=== PATIENT | male | born 1985 | race Caucasian/White ===

== ENCOUNTER 2022-05-07 15:28 | Emergency (ER) | payer SELFPAY ==
[2022-05-07 15:49] VITALS: BP 123/74; PULSE 88; RESP 18; TEMP 36.6; O2SAT 99
--- NOTE | 2022-05-07 16:10 | ED.MALEGU ---
HPI - Male Genitourinary General Chief complaint: Urogenital-Male Stated complaint: uti complaint Time Seen by Provider: 05/07/22 16:10 Source: patient Mode of arrival: ambulatory Limitations: no limitations History of Present Illness HPI Narrative: 36-year-old male presents with complaint of does not feel normal when peeing . States not exactly painful but does not feel good . Has felt this way for approximately 3 weeks. States 2 weeks ago he began feeling not well . Fatigue and achy. Thinks that he has a kidney infection. Denies flank pain. No abdominal pain. Denies nausea vomiting diarrhea. Eating and drinking normally. Not concern for STIs. States he has been with his partner for 1 year. denies testicular pain, swelling. Denies blood in urine. All systems reviewed and negative except as noted above. Related Data Allergies Allergy/AdvReac Type Severity Reaction Status Date / Time Penicillins AdvReac Nausea and Verified 05/07/22 15:59 Vomiting Review of Systems Review of Systems: CONSTITUTIONAL: Denies fever, chills, or sweats. Reports fatigue EYES: Denies visual changes, redness, or discharge. ENT: Denies rhinorrhea, congestion, sore throat, or otalgia. CARDIOVASCULAR: Denies chest pain, palpitations, or edema. RESPIRATORY: Denies cough or dyspnea. GASTROINTESTINAL: Denies abdominal pain, nausea, vomiting, or diarrhea. GENITOURINARY: report dysuria. Denies hematuria. SKIN: Denies rash or itching. MUSCULOSKELETAL: Denies back pain, joint pain. Reports myalgia. NEUROLOGIC: Denies headache, numbness, or weakness. PSYCHIATRIC: Denies anxiety or depression. All other systems reviewed are negative, except as documented in HPI. PMFSH Comments At time of signature, agree with nursing past medical, surgical, social and family history. There is no relevant family history pertinent to the presenting complaint. Exam Narrative: GENERAL: This is a well-nourished, well-developed patient, in no apparent distress. HEAD: normocephalic, atraumatic. EYES: PERRL. Sclera clear/white. Vision is grossly intact. EARS: External ears normal NOSE: External nose normal NECK: Neck supple, non-tender without lymphadenopathy, masses or thyromegaly. CARDIOVASCULAR: Regular rate and rhythm without murmurs, gallops, or rubs. RESPIRATORY: Clear to auscultation. Breath sounds equal bilaterally. No wheezes, rales, or rhonchi. GASTROINTESTINAL: Abdomen soft, non-tender, nondistended. Bowel sounds are active. No hepato-splenomegaly, or palpable masses. No guarding. SKIN: warm, Dry, intact with no suspicious lesions or rash, good texture and turgor. NEURO: awake, alert, and oriented to person, place and time. There were no obvious focal neurologic abnormalities. EXTREMITIES: No joint tenderness, effusion, or edema noted. Course Course Level of Care: Express Care Visit Vital Signs Vital signs: Vital Signs Temperature 36.6 C 05/07/22 15:49 Pulse Rate 88 05/07/22 15:49 Respiratory Rate 18 05/07/22 15:49 Blood Pressure 123/74 05/07/22 15:49 Pulse Oximetry 99 05/07/22 15:49 Oxygen Delivery Room Air 05/07/22 15:49 Temperature 36.6 C 05/07/22 15:49 Pulse Rate 88 05/07/22 15:49 Respiratory Rate 18 05/07/22 15:49 Blood Pressure 123/74 05/07/22 15:49 Pulse Oximetry 99 05/07/22 15:49 Oxygen Delivery Room Air 05/07/22 15:49 reviewed MDM - Male Genitourinary MDM Narrative Medical decision making narrative: UA normal. Discussed results with patient. STI testing is pending. Will prescribe antibiotic to treat patient's symptoms and has continued concern for UTI. Recommend follow-up with PCP. Patient is aware of diagnosis, understands and agrees to treatment plan. Anticipatory guidance given. Patient agrees to follow-up as directed and is aware of reasons to seek care at the emergency department. Portions of this record may have been created with voice recognition software
== END 2022-05-07 16:22 | disposition home or self-care (01) ==
PROVIDERS: Emergency Provider Nurse Practitioner Family
DX: R30.0 Dysuria (principal)
CPT/HCPCS: 81003; 87491; 87591; 87661; 99203; G0463

== ENCOUNTER 2022-06-11 16:57 | Emergency (ER) | payer SELFPAY ==
[2022-06-11 17:13] VITALS: BP 135/82; PULSE 105; RESP 18; TEMP 37.3; O2SAT 99
--- NOTE | 2022-06-11 17:57 | ED.URI ---
HPI - URI/Sore Throat General Chief Complaint: Upper Respiratory Infection Stated Complaint: Body Aches,Chills,Cough,Sore Throat Time Seen by Provider: 06/11/22 17:52 Source: patient Mode of arrival: ambulatory Limitations: no limitations History of Present Illness HPI Narrative: Patient presents today with a 3 day history of sore throat, chills, bilateral ear pain, body aches, subjective fever. He currently rates his sore throat 8/10 and has been taking Excedrin without relief. Related Data Home Medications Medication Instructions Recorded Confirmed bupropion HCl 300 mg 24 hr tablet, 300 mg PO DAILY 06/11/22 06/11/22 extended release Allergies Allergy/AdvReac Type Severity Reaction Status Date / Time Penicillins AdvReac Mild Nausea and Verified 06/11/22 17:10 Vomiting Review of Systems Review of Systems: CONSTITUTIONAL: Denies sweats.+ Body aches, chills, subjective fever EYES: Denies visual changes, redness, or discharge. ENT: Denies rhinorrhea, congestion. + sore throat, ear pain CARDIOVASCULAR: Denies chest pain, palpitations, or edema. RESPIRATORY: Denies cough or dyspnea. GASTROINTESTINAL: Denies abdominal pain, nausea, vomiting, or diarrhea. GENITOURINARY: Denies dysuria or hematuria. SKIN: Denies rash, itching, or wounds. MUSCULOSKELETAL: Denies back pain, joint pain, or myalgia. NEUROLOGIC: Denies headache, numbness, tingling, or weakness. PSYCH: Denies depression or anxiety. PMFSH Comments At time of signature, I have reviewed and agree with nursing past medical, surgical, social and family history unless otherwise noted. Please see nursing chart for further information. There is no relevant family history pertinent to the presenting complaint Exam Narrative: GENERAL: mildly ill-appearing, well-nourished, and in no acute distress. HEAD: Normocephalic, atraumatic. EYES: EOMI. No redness or drainage. Conjunctivae normal. ENT: Mucous membranes pink and moist. Nares clear. No rhinorrhea. TMs normal bilaterally. Throat erythematous without edema or exudate. Uvula midline. NECK: Normal AROM. Supple. Bilateral tonsillar lymphadenopathy. CHEST: No respiratory distress. Clear to auscultation. HEART: Regular rate and rhythm. No murmur appreciated. Normal peripheral pulses. EXTREMITIES: Normal range of motion. No edema. SKIN: Warm, dry, no rash. Capillary refill normal. Normal skin turgor. NEURO: No focal deficits. Alert and oriented x3. Gait steady. PSYCH: Normal affect. No signs of depression or anxiety. Course Course Level of Care: Express Care Visit Vital Signs Vital signs: Vital Signs Temperature 99.1 F 06/11/22 17:13 Pulse Rate 105 H 06/11/22 17:13 Respiratory Rate 18 06/11/22 17:13 Blood Pressure 135/82 06/11/22 17:13 Pulse Oximetry 99 06/11/22 17:13 Oxygen Delivery Room Air 06/11/22 17:13 Temperature 99.1 F 06/11/22 17:13 Pulse Rate 105 H 06/11/22 17:13 Respiratory Rate 18 06/11/22 17:13 Blood Pressure 135/82 06/11/22 17:13 Pulse Oximetry 99 06/11/22 17:13 Oxygen Delivery Room Air 06/11/22 17:13 Reviewed. Pt has been instructed to follow up with his PCP regarding his elevated blood pressure today. MDM - URI/Sore Throat Differential Diagnosis Differential diagnosis: Likely upper respiratory infection, viral infection, pharyngitis and other ( strep throat) Lab Data Attestation: I reviewed the patient's lab results. Labs: Strep Screen Positive Group A Strep *(Reference Range: Negative)* Critical Care Time Critical Care Time Critical Care Time: No Discharge Plan Discharge Clinical Impression: Strep throat Patient Disposition: Home, Self-Care Condition: Stable Instructions: Antibiotic Form, Strep Throat (DC) Additional Instructions: You have tested positive for strep throat. Please take the azithromycin as prescribed until gone. Taking anti
== END 2022-06-11 18:03 | disposition home or self-care (01) ==
PROVIDERS: Emergency Provider Nurse Practitioner
DX: J02.0 Streptococcal pharyngitis (principal)
CPT/HCPCS: 87880; 99213; G0463

== ENCOUNTER 2022-09-12 12:29 | Emergency (ER) | payer BC, SELFPAY ==
--- NOTE | ~2022-09-12 | CT_ITS ---
EXAMINATION: CT abdomen pelvis w con DATE: 09/12/2022 13:48 INDICATION: Left lower quadrant abdominal pain. TECHNIQUE: Computed tomography (CT) of the abdomen and pelvis was performed with 100 mL Omnipaque 350 intravenous contrast. Automated exposure control and iterative reconstruction technique were employe d. The dose-length product was 418.26 mGy-cm. COMPARISON: None. FINDINGS: The visualized portions of the lung bases demonstrate minimal atelectasis. No pleural effus ion. The heart size is normal. No pericardial effusion. The liver and spleen are normal. The gallblad kenn is contracted. The pancreas, adrenal glands, and right kidney are normal. There is a 5 mm cyst in left kidney. There are changes of appendectomy. There are no pathologically enlarged lymph nodes. Th ere is no free intraperitoneal fluid. There is mild thoracic and lumbar spondylosis. IMPRESSION: 1. No etiology for the patient's symptoms. Reviewed, dictated and finalized at location A. [employer]
[2022-09-12 12:43] VITALS: BP 114/76; PULSE 84; RESP 18; TEMP 36.7; O2SAT 98
[2022-09-12 12:50] VITALS: BP 114/76; PULSE 78; RESP 18; O2SAT 99
[2022-09-12 13:00] LABS: Basophils Absolute Auto 0.1 K/mm3 (0.0-0.1); Basophils Percent Auto 0.7 % (0.2-1.2); Eosinophils Absolute Auto 0.2 K/mm3 (0-0.3); Eosinophils Percent Auto 2.7 % (0-4.4); Hematocrit 42.3 % (42.0-52.0); Hemoglobin 14.3 g/dL (14.0-18.0); Immature Granulocyte Absolute 0.02 K/mm3 (0.00-0.031); Immature Granulocyte Percent A 0.3 % (0-0.5); Lymphocytes Absolute Auto 1.45 K/mm3 (0.9-3.2); Lymphocytes Percent Auto 20.5 % (18.3-44.2); Mean Corpuscular HGB Conc 33.8 g/dl (32-36); Mean Corpuscular Volume 88.7 fl (80-100); Mean Platelet Volume 9.1 fl (7.4-10.4); Monocytes Absolute Auto 0.5 K/mm3 (0.1-0.6); Monocytes Percent Auto 6.4 % (2.6-8.5); Neutrophils Absolute Auto 4.9 K/mm3 (1.3-6.7); Neutrophils Percent Auto 69.4 % (45.5-73.1); Platelet Count Result 242 k/mm3 (150-375); Red Blood Count 4.77 M/mm3 (4.6-6.20); Red Cell Distribution Width 12.6 % (11.5-14.5); White Blood Count 7.1 K/mm3 (4.5-10.0)
[2022-09-12 13:15] LABS: Alanine Aminotransferase 21 U/L (6-50); Albumin Level 4.4 g/dL (3.5-5.1); Alkaline Phosphatase 67 U/L (38-126); Anion Gap 5 mmol/L (8-16); Aspartate Amino Transferase 25 U/L (17-59); Bilirubin,Total 0.5 mg/dL (0.2-1.3); Blood Urea Nitrogen 11 mg/dL (9-20); Calcium 8.8 mg/dL (8.4-10.2); Carbon Dioxide 31 mmol/L (22-30); Chloride 105 mmol/L (98-107); Estimated CRCL calculation 138 ml/min; Estimated Glomerular Filt Rate > 60; Glucose 101 mg/dL (65-110); Lipase 36 U/L (23-300); Potassium 3.8 mmol/L (3.4-5.0); Sodium 141 mmol/L (137-145)
--- NOTE | 2022-09-12 14:09 | ED.ABDPAIN ---
HPI - Abdominal Pain General Chief Complaint: Abdominal Pain Stated Complaint: abd pain/diarrhea Time Seen by Provider: 09/12/22 12:36 History of Present Illness HPI narrative: Patient is a 37-year-old male who presents ER with concerns for UC flare. History of ulcerative colitis has not been treated over 10 years. Started having loose mucus-like stools with blood in them this week. Has not been able to get in with GI. No fevers or chills or sweats. Was told to come to the ER for evaluation and referral if needed. Related Data Home Medications Medication Instructions Recorded Confirmed bupropion HCl 300 mg 24 hr tablet, 300 mg PO DAILY 06/11/22 06/11/22 extended release Allergies Allergy/AdvReac Type Severity Reaction Status Date / Time Penicillins AdvReac Mild Nausea and Verified 09/12/22 12:47 Vomiting Review of Systems Review of Systems: All systems reviewed & are unremarkable except as noted in HPI and below Constitutional: Constitutional: Denies chills and Denies fever(s) Cardiovascular: Cardiovascular: Denies chest pain and Denies rapid heart rate Respiratory: Respiratory: Denies cough and Denies dyspnea Gastrointestinal: Gastrointestinal: Reports abdominal pain, Reports diarrhea, Denies nausea and Denies vomiting PMFSH Past Medical History Medical History (Updated 09/12/22 @ 14:14 by Garett Rahman MD) Ulcerative colitis Surgical History Surgical History (Updated 09/12/22 @ 14:14 by Garett Rahman MD) History of colonoscopy Exam Narrative: GENERAL: Well-appearing, well-nourished, and in no acute distress. HEAD: Normocephalic, atraumatic. CHEST: Clear to auscultation. No respiratory distress. HEART: Regular rate and rhythm. Normal peripheral pulses. ABDOMEN: Soft, mild tenderness left lower quadrant, nondistended. EXTREMITIES: Normal range of motion. No edema. SKIN: Warm, dry, no rash. NEURO: Alert and oriented x3. PSYCH: Normal mood and affect. Course Course Emergency Course: Patient resting comfortably. Informed of results. Discussed case with Dr. Braga. Recommends steroid taper and follow-up in GI clinic. Discussed treatment plan with patient and he is agreeable. Vital Signs Vital signs: Vital Signs Temperature 98.1 F 09/12/22 12:43 Pulse Rate 84 09/12/22 12:43 Respiratory Rate 18 09/12/22 12:43 Blood Pressure 114/76 09/12/22 12:43 Pulse Oximetry 98 09/12/22 12:43 Oxygen Delivery Room Air 09/12/22 12:43 Temperature 98.1 F 09/12/22 12:43 Pulse Rate 78 09/12/22 12:50 Respiratory Rate 18 09/12/22 12:50 Blood Pressure 114/76 09/12/22 12:50 Pulse Oximetry 99 09/12/22 12:50 Oxygen Delivery Room Air 09/12/22 12:43 MDM - Abdominal Pain Lab Data 09/12/22 12:55 09/12/22 12:55 Labs: Lab Results 09/12/22 09/12/22 Range/Units 12:55 12:55 WBC 7.1 (4.5-10.0) K/mm3 RBC 4.77 (4.6-6.20) M/mm3 Hgb 14.3 (14.0-18.0) g/dL Hct 42.3 (42.0-52.0) % MCV 88.7 (80-100) fl MCH 30.0 (26-34) pg MCHC 33.8 (32-36) g/dl RDW 12.6 (11.5-14.5) % Plt Count 242 (150-375) k/mm3 MPV 9.1 (7.4-10.4) fl Immature Gran % (Auto) 0.3 (0-0.5) % Neut % (Auto) 69.4 (45.5-73.1) % Lymph % (Auto) 20.5 (18.3-44.2) % Holmes % (Auto) 6.4 (2.6-8.5) % Eos % (Auto) 2.7 (0-4.4) % Baso % (Auto) 0.7 (0.2-1.2) % Lymph # (Auto) 1.45 (0.9-3.2) K/mm3 Holmes # (Auto) 0.5 (0.1-0.6) K/mm3 Eos # (Auto) 0.2 (0-0.3) K/mm3 Baso # (Auto) 0.1 (0.0-0.1) K/mm3 Abs Immat Gran (auto) 0.02 (0.00-0.031) K/mm3 Absolute Neuts (auto) 4.9 (1.3-6.7) K/mm3 Absolute Nucleated RBC 0.0 (0.0-0.012) K/mm3 Nucleated RBC % 0.0 (0.0-0.2) % Sodium 141 (137-145) mmol/L Potassium 3.8 (3.4-5.0) mmol/L Chloride 105 (98-107) mmol/L Carbon Dioxide 31 H (22-30) mmol/L Anion Gap 5 L (8-16) mmol/L BUN 11 (9-20) mg/dL Creatinine 0.70 (0.7-1.3) m
[2022-09-12 14:26] VITALS: BP 102/68; PULSE 77; RESP 18; O2SAT 98
== END 2022-09-12 14:27 | disposition home or self-care (01) ==
PROVIDERS: Emergency Provider Emergency Medicine; PCP Family Medicine
DX: K51.90 Ulcerative colitis, unspecified, without complications (principal)
CPT/HCPCS: 36415; 74177; 80053; 83690; 85025; 99284; Q9967

== ENCOUNTER 2022-09-27 14:31 | Outpatient (CLI) | payer BC, SELFPAY ==
[2022-09-27 15:31] LABS: CRP < 0.5 mg/dL (<1.0)
[2022-09-27 16:03] LABS: Erythrocyte Sedimentation Rate 1 mm/hr (0-20)
[2022-10-01 00:02] LABS: Vitamin D 1,25 (OH)2 Total 46 pg/mL (18-72); Vitamin D2 1,25 (OH)2 <8 pg/mL; Vitamin D3 1,25 (OH)2 46 pg/mL
== END 2022-09-27 14:32 | disposition home or self-care (01) ==
PROVIDERS: PCP Family Medicine; Visit Provider Nurse Practitioner
DX: K51.90 Ulcerative colitis, unspecified, without complications (principal); K92.1 Melena; R10.9 Unspecified abdominal pain
CPT/HCPCS: 36415; 82652; 85652; 86140

== ENCOUNTER 2022-11-08 11:04 | Outpatient (CLI) | payer BC, SELFPAY ==
[2022-11-13 20:32] LABS: Calprotectin, Stool 96 mcg/g
== END 2022-11-08 11:05 | disposition home or self-care (01) ==
LOC: ANHLAB 11:05
PROVIDERS: PCP Family Medicine; Visit Provider Nurse Practitioner
DX: K51.90 Ulcerative colitis, unspecified, without complications (principal); K92.1 Melena; R10.9 Unspecified abdominal pain
CPT/HCPCS: 83993

== ENCOUNTER 2022-12-03 02:33 | Day surgery (SDC) | payer OTHER, SELFPAY ==
[2022-11-17 16:08] VITALS: BMI 25.1
[2022-12-03 11:20] VITALS: BP 109/75; PULSE 77; RESP 16; TEMP 36.6; O2SAT 99
[2022-12-03] MEDS: LACTATED RINGERS 1,000 ML 150 ML IV CONT (11:27)
--- NOTE | 2022-12-03 11:54 | PM.HPGS ---
History of Present Illness History of Present Illness Consent: Risks, benefits, and alternatives have been discussed and questions answered. Patient agrees to proceed with procedure. Chief complaint: GERD, Ulcerative Colitis Narrative: Abdiel Lane is a 37 year old male presents for both colonoscopy and EGD. Patient has a history of heartburn for many years. He states this is controlled if he takes omeprazole 20mg p.o. daily. He does take it intermittently however. When he has flare-ups several times a week he also will supplement with [id number] antacids. Patient denies any dysphagia. He has no weight loss. No bleeding. Presents today for EGD because of chronic GE reflux. Additionally patient was diagnosed with ulcerative colitis at age 21. Recently has been on no specific medications. He has had rectal bleeding and diarrhea. For which she was seen in the emergency room. Seen in the GI office 2 months ago was placed on Lialda. Initially treated with steroids. Prednisone has been tapered off. After 2-3 weeks a Lialda he no longer has blood in his stools. His bowel habits have essentially returned to normal. He does complain of chronic left lower quadrant pain has been present for many years. Patient has had prior colonoscopy perhaps 6 or 7 years ago. Family history is noncontributory. Review of Systems Review of Systems: Review of systems noncontributory. [facility] Past Medical History Medical History (Updated 09/27/22 @ 14:22 by Monika Vaz APRN) GERD (gastroesophageal reflux disease) Ulcerative colitis Surgical History Surgical History History of colonoscopy Social History Social History Smoking packs per day: 1 Smoking cigarettes per day: 20.0 Years smoked: 16 Smoking pack-years: 16.00 Smoking status: Current every day smoker Tobacco type: cigarettes Alcohol intake: current Drinks per week: 6 Alcohol use details: BEERS Substance use: current Substance use type: marijuana Other substance usage details: SMOKE ONCE A WEEK Living arrangements: with family Spiritual care concerns: No Meds Home Medications and Allergies Home Medications Medication Instructions Recorded Confirmed Type bupropion HCl 300 mg 24 hr tablet, 300 mg PO DAILY 06/11/22 12/03/22 History extended release mesalamine 1.2 gram tablet,delayed 4.8 g PO DAILY #120 tabs 09/27/22 12/03/22 Rx release (Lialda) omeprazole 40 mg capsule,delayed 40 mg PO DAILY #30 caps 09/27/22 12/03/22 Rx release paroxetine HCl 10 mg tablet 20 mg PO DAILY 12/03/22 12/03/22 History Allergies Allergy/AdvReac Type Severity Reaction Status Date / Time Penicillins Allergy Intermediate Hives Verified 12/03/22 11:19 Vital Signs Vital Signs - 24 hr 12/03/22 11:20 Temperature 97.8 F Pulse Rate 77 Respiratory Rate 16 Blood Pressure 109/75 Pulse Oximetry 99 Oxygen Delivery Room Air Exam Narrative: Physical exam reveals patient to be alert. Vital signs stable. HEENT exam is unremarkable. Patient is anicteric. Lungs are clear to auscultation and percussion. Heart is without murmur or extra sounds. Abdomen bowel sounds are present soft , He does have some nonspecific tenderness in the left lower quadrant area. No masses are palpable. with no organomegaly. Digital external rectal exam normal. Assessment and Plan Assessment and plan (1) GERD (gastroesophageal reflux disease): Code(s): K21.9 - Gastro-esophageal reflux disease without esophagitis Status: Acute Assessment and Plan: Patient complains of GERD. He has heartburn is is main symptom. This occurs is prep predominantly on an empty stomach. It occurs several times a week. He only takes omeprazole p.r.n.. Likely would benefit from taking this daily with more strict anti-reflux measures
--- NOTE | 2022-12-03 13:02 | WPDANESEPPF ---
Anes - Initial Pre Proc Eval Procedure: Operation Date: 12/03/22 12:30 Proposed Procedures p Esophagogastroduodenoscopy & Colonoscopy - Lui Givens MD Date/Time: 12/03/22 13:02 Surgeon: Lui Givens MD Pre Op Diagnosis: GERD, Ulcerative Colitis Patient Data Age: 37 Gender: M Height: 1.83 m Weight: 81.8 kg Last Vital Signs Temp 97.8 F 12/03/22 11:20 Pulse 77 12/03/22 11:20 Resp 16 12/03/22 11:20 BP 109/75 12/03/22 11:20 Pulse Ox 99 12/03/22 11:20 O2 Del Method Room Air 12/03/22 11:20 Allergies Allergy/AdvReac Type Severity Reaction Status Date / Time Penicillins Allergy Intermediate Hives Verified 12/03/22 11:19 Home Medications Medication Instructions Recorded Confirmed Type bupropion HCl 300 mg 24 hr tablet, 300 mg PO DAILY 06/11/22 12/03/22 History extended release mesalamine 1.2 gram tablet,delayed 4.8 g PO DAILY #120 tabs 09/27/22 12/03/22 Rx release (Lialda) omeprazole 40 mg capsule,delayed 40 mg PO DAILY #30 caps 09/27/22 12/03/22 Rx release paroxetine HCl 10 mg tablet 20 mg PO DAILY 12/03/22 12/03/22 History Patient hx anesthesia problems: none Family hx anesthesia problems: none Results Review: All pre-operative results and documents have been reviewed as part of the pre-operative evaluation. [facility] Past Medical History Medical History (Updated 09/27/22 @ 14:22 by Monika Vaz APRN) GERD (gastroesophageal reflux disease) Ulcerative colitis Surgical History Surgical History History of colonoscopy Social History Social History Smoking packs per day: 1 Smoking cigarettes per day: 20.0 Years smoked: 16 Smoking pack-years: 16.00 Smoking status: Current every day smoker Tobacco type: cigarettes Alcohol intake: current Drinks per week: 6 Alcohol use details: BEERS Substance use: current Substance use type: marijuana Other substance usage details: SMOKE ONCE A WEEK Living arrangements: with family Spiritual care concerns: No Anes - Eval Final PreProcedure Day of Procedure 12/03/22 13:02 Patient weight: normal Heart: regular rate and rhythm Lungs: clear to auscultation Airway: Mallampati scale class II Neurological: alert and oriented Last oral intake: >/= 8 hours ASA classification: II Emergent: no Anesthetic plan: proceed Anesthesia type and monitoring: general GIVS and standard monitoring Results Review: All pre-operative results and documents have been reviewed as part of the pre-operative evaluation. Informed Consent: The patient's anesthetic plan and its attendant risks and benefits were discussed with the patient/family/POA. Questions were solicited and answers provided to the satisfaction of the patient/family/POA.
--- NOTE | 2022-12-03 13:47 | SUR.OPER ---
EGD START 1326, END 1328 COLONOSCOPY START 1334, END 1344
[2022-12-03 13:55] VITALS: BP 98/64; PULSE 73; RESP 16; O2SAT 99
[2022-12-03 14:05] VITALS: BP 104/70; PULSE 68; RESP 17; O2SAT 99
[2022-12-03 14:22] VITALS: BP 120/70; PULSE 75; RESP 18; O2SAT 99
== END 2022-12-03 14:34 | disposition home or self-care (01) ==
PROVIDERS: PCP Family Medicine; Visit Provider Internal Medicine Gastroenterology
PROC: 0DJ08ZZ Inspection of Upper Intestinal Tract, Via Natural or Artificial Opening Endoscopic (ICD-10-PCS; CPT 43235; principal; 2022-12-03 12:30)
DX: K21.9 Gastro-esophageal reflux disease without esophagitis (principal); K51.50 Left sided colitis without complications; K31.A19 Gastric intestinal metaplasia without dysplasia, unspecified site; K64.8 Other hemorrhoids; F17.210 Nicotine dependence, cigarettes, uncomplicated
CPT/HCPCS: 43239; 45380; 87081; 88305; J2001; J2704; J7120

== ENCOUNTER 2023-07-18 00:08 | Emergency (ER) | payer OTHER, SELFPAY ==
--- NOTE | ~2023-07-18 | XR_ITS ---
Right Shoulder Technique: AP and scapular Y views were obtained. Clinical History: Pain Findings: No fracture or dislocation is seen. Osseous alignment is anatomic. The glenohumeral and acr omioclavicular joint spaces are preserved. Soft tissues are unremarkable. Impression: Unremarkable right shoulder radiographs. Reviewed, dictated and finalized at [facility]. [employer] Impression: Unremarkable right shoulder radiographs.
[2023-07-18 00:09] VITALS: BP 115/93; PULSE 85; RESP 16; TEMP 36.3; O2SAT 99
[2023-07-18] MEDS: diazePAM INJ (*CRX) 10 MG/2 ML SYRINGE 2 MG IM (03:19)
[2023-07-18] MEDS: KETOROLAC (*BKC) 60 MG/2 ML VIAL IM (03:19)
--- NOTE | 2023-07-18 03:50 | ED.EXTPRO ---
HPI - Extremity Problem General Chief complaint: Extremity Problem,Nontraumatic Stated complaint: right shoulder pain Time Seen by Provider: 07/18/23 03:00 Source: patient Mode of arrival: ambulatory Limitations: no limitations History of Present Illness HPI Narrative: Patient is a 38-year-old male who presents ED with report of right shoulder pain. Patient reports pain woke him up out of his sleep this evening a few hours prior to arrival. He reports pain in his right shoulder/right-sided neck/upper back. States he has been having muscle spasms that feel like Tin horses in his arm/shoulder. Pain radiates down the arm. No numbness or tingling. Patient denies any injury. He has not taken anything for pain. No chest pain or difficulty breathing. Related Data Home Medications Medication Instructions Recorded Confirmed bupropion HCl 300 mg 24 hr tablet, 300 mg PO DAILY 06/11/22 12/16/22 extended release paroxetine HCl 10 mg tablet 20 mg PO DAILY 12/03/22 12/16/22 Allergies Allergy/AdvReac Type Severity Reaction Status Date / Time Penicillins Allergy Intermediate Hives Verified 07/18/23 01:48 Review of Systems Review of Systems: CONSTITUTIONAL: Denies fever, chills, or sweats. MUSCULOSKELETAL: See HPI. NEUROLOGIC: See HPI. All systems reviewed & are unremarkable except as noted in HPI and below PMFSH Past Medical History Medical History Chronic left-sided ulcerative colitis GERD (gastroesophageal reflux disease) Hemorrhoids Tobacco dependence Ulcerative colitis Surgical History Surgical History History of colonoscopy Social History Social History Smoking packs per day: 1 Smoking cigarettes per day: 20.0 Years smoked: 16 Smoking pack-years: 16.00 Smoking status: Current every day smoker Tobacco type: cigarettes Alcohol intake: current Drinks per week: 6 Alcohol use details: BEERS Substance use: current Substance use type: marijuana Other substance usage details: SMOKE ONCE A WEEK Living arrangements: with family Spiritual care concerns: No Exam Narrative: GENERAL: Uncomfortable appearing, well-nourished, non-toxic, in no acute distress. HEAD: Normocephalic, atraumatic. RESPIRATORY: Airway patent, respirations nonlabored. Clear to auscultation bilaterally, no rales, rhonchi, wheezing. CARDIOVASCULAR: Regular rate and rhythm without murmurs, rubs, or gallops. Radial pulses 2+ MUSCULOSKELETAL: Moves all extremities. Full range of motion of right shoulder. Tenderness to palpation over right anterior shoulder. No palpable deformities. Tenderness throughout lower right-sided paraspinal musculature extending into trapezius region and upper rhomboid distribution. Palpable muscle tension. Sensation intact. Equal leather colorer strength in upper extremities stacie. Appropriate capillary refill to R hand/fingers. SKIN: Warm, dry, normal color. NEURO: A&O X3. Speech clear. Cranial nerves II-XII grossly intact. Steady gait. No ataxic movements. PSYCHIATRIC: Appropriate mood and affect. Normal interaction. Course Vital Signs Vital signs: Vital Signs Temperature 97.3 F L 07/18/23 00:09 Pulse Rate 85 07/18/23 00:09 Respiratory Rate 16 07/18/23 00:09 Blood Pressure 115/93 H 07/18/23 00:09 Pulse Oximetry 99 07/18/23 00:09 Oxygen Delivery Room Air 07/18/23 00:09 Temperature 97.3 F L 07/18/23 00:09 Pulse Rate 85 07/18/23 00:09 Respiratory Rate 16 07/18/23 00:09 Blood Pressure 115/93 H 07/18/23 00:09 Pulse Oximetry 99 07/18/23 00:09 Oxygen Delivery Room Air 07/18/23 00:09 MDM - Extremity (Nontraumatic) MDM Narrative Medical decision making narrative: Patient presented to ED with right-sided neck/shoulder/upper back pain, spasms. Patient neurologically inta
[2023-07-18] MEDS: CYCLOBENZAPRINE HCL 5 MG TABLET PO (04:36)
[2023-07-18 04:38] VITALS: BP 120/84; PULSE 80; RESP 17; O2SAT 100
== END 2023-07-18 04:41 | disposition home or self-care (01) ==
PROVIDERS: Emergency Provider Physician Assistant; PCP Family Medicine
DX: S16.1XXA Strain of muscle, fascia and tendon at neck level, initial encounter (principal); K21.9 Gastro-esophageal reflux disease without esophagitis; K51.90 Ulcerative colitis, unspecified, without complications; F17.210 Nicotine dependence, cigarettes, uncomplicated; X58.XXXA Exposure to other specified factors, initial encounter
CPT/HCPCS: 73030; 96372; 99284; A9270; J1885; J3360

== ENCOUNTER 2023-07-19 15:27 | Emergency (ER) | payer OTHER, SELFPAY ==
[2023-07-19 15:40] VITALS: BP 129/84; PULSE 84; RESP 16; TEMP 36.3; O2SAT 100
--- NOTE | 2023-07-19 15:50 | ED.UPPEXIN ---
HPI - Extremity Injury (Upper) General Chief Complaint: Extremity Injury, Upper Stated Complaint: Right Arm Pain Source: patient Mode of arrival: ambulatory Limitations: no limitations History of Present Illness HPI narrative: 38 y/o male presented for c/o right arm pain and spams since last night. Pain is to the mid tricep and forearm, reports the thumb feels numb and cold. Denies injury, states he woke with the arm stiff and bent at elbow. Pt was seen in the ER on 07/18 at 0300, for reports of pain to right shoulder/right-sided neck/upper back. Given Toradol and Valium in the ER, prescribed Flexeril and lidocaine patches. He states he has minimal improvement in the arm pain with the meds. Pain is now minimal to the neck and back. No aggravating factors, reports full ROM to the RUE. Pt was scheduled with pcp today but was turned away because he is a new pt. Related Data Home Medications Medication Instructions Recorded Confirmed bupropion HCl 300 mg 24 hr tablet, 300 mg PO DAILY 06/11/22 07/19/23 extended release Allergies Allergy/AdvReac Type Severity Reaction Status Date / Time Penicillins Allergy Intermediate Hives Verified 07/19/23 15:38 Review of Systems Review of Systems: CONSTITUTIONAL: Denies body aches, fever, chills CARDIOVASCULAR: Denies chest pain, palpitations, or edema. RESPIRATORY: Denies cough or dyspnea. SKIN: Denies rash, itching, or wounds. MUSCULOSKELETAL: per HPI NEUROLOGIC: Denies headache All systems reviewed & are unremarkable except as noted in HPI and below PMFSH Past Medical History Medical History Chronic left-sided ulcerative colitis GERD (gastroesophageal reflux disease) Hemorrhoids Tobacco dependence Ulcerative colitis Surgical History Surgical History History of colonoscopy Social History Social History Smoking packs per day: 1 Smoking cigarettes per day: 20.0 Years smoked: 16 Smoking pack-years: 16.00 Smoking status: Current every day smoker Tobacco type: cigarettes Alcohol intake: current Drinks per week: 6 Alcohol use details: BEERS Substance use: current Substance use type: marijuana Other substance usage details: SMOKE ONCE A WEEK Living arrangements: with family Spiritual care concerns: No Comments At time of signature, I have reviewed and agree with nursing past medical, surgical, social and family history unless otherwise noted. Please see nursing chart for further information. There is no relevant family history pertinent to the presenting complaint Exam Narrative: GENERAL: Appears in mild pain, holding the right arm. no acute distress. HEAD: Normocephalic, atraumatic. NECK: Supple. full ROM. No VPT. CHEST: Speaks in full sentences. No respiratory distress. HEART: Regular rate and rhythm. Normal and equal peripheral pulses. EXTREMITIES: RUE has normal strength and sensation, normal range of motion at shoulder and elbow without pain. Pain reported to mid tricep and medial epicondyle, mild tenderness with palpation. No ecchymosis, No open wounds, or obvious deformity; alignment normal, pulse palpable and equal bilaterally, [employer] strength strong and equal bilaterally. skin warm, dry, pink. Capillary refill less than 3 seconds. No vertebral or paraspinal tenderness to cervical or thoracic area. SKIN: Warm, dry, no rash. NEURO: Alert and oriented x3. PSYCH: Normal mood and affect Course Course Emergency Course: Patient is aware of diagnosis, understands and agrees to treatment plan. Anticipatory guidance given. Patient agrees to follow-up as directed and is aware of reasons to seek care at the emergency department. Portions of this record may have been created with voice recognition software Level of Care: Express Care Visit Vital Signs Vital signs:
== END 2023-07-19 15:57 | disposition home or self-care (01) ==
PROVIDERS: Emergency Provider Nurse Practitioner Family
DX: M79.601 Pain in right arm (principal); F17.210 Nicotine dependence, cigarettes, uncomplicated; Z79.899 Other long term (current) drug therapy
CPT/HCPCS: 99213; G0463

== ENCOUNTER 2023-09-01 13:04 | Emergency (ER) | payer OTHER, SELFPAY ==
--- NOTE | 2023-09-01 13:10 | ED.URI ---
HPI - URI/Sore Throat General Chief Complaint: Upper Respiratory Infection Stated Complaint: sorethroat,abdominal pain Time Seen by Provider: 09/01/23 13:10 Source: patient Mode of arrival: ambulatory Limitations: no limitations History of Present Illness HPI Narrative: Patient is a 38-year-old male who presents with 4 days of fatigue, headaches, sore throat. Patient states he has taken Tylenol for headache. Denies any fever, chills, nausea, vomiting, diarrhea. Related Data Home Medications Medication Instructions Recorded Confirmed bupropion HCl 300 mg 24 hr tablet, 300 mg PO DAILY 06/11/22 07/19/23 extended release Allergies Allergy/AdvReac Type Severity Reaction Status Date / Time Penicillins Allergy Intermediate Hives Verified 09/01/23 13:22 Review of Systems Review of Systems: All systems reviewed & are unremarkable except as noted in HPI and below Constitutional: Constitutional: Denies body ache(s), Denies chills, Reports fatigue, Denies fever(s), Denies headache(s), Denies malaise and Denies weakness Eyes: Eyes: Denies blurry vision, Denies itchy eyes and Denies loss of vision ENT: Denies otalgia, Reports headache(s), Reports nasal congestion, Denies sinus pain and Reports sore throat Cardiovascular: Cardiovascular: Denies chest pain, Denies irregular heart rhythm and Denies dyspnea Respiratory: Respiratory: Denies cough and Denies dyspnea Gastrointestinal: Gastrointestinal: Denies abdominal pain, Denies diarrhea, Denies nausea and Denies vomiting Musculoskeletal: Musculoskeletal: Denies back pain, Denies myalgias and Denies arthralgias Integumentary/Breasts: Skin/Breast: Denies pruritus and Denies rash Neurologic: Denies headache(s), Denies loss of vision and Denies weakness Psychiatric: Psychiatric: Reports no additional psychiatric complaints Endocrine: Endocrine: Denies fatigue Allergic/Immunologic: Allergic/Immunologic: Denies itchy eyes PMFSH Past Medical History Medical History Chronic left-sided ulcerative colitis GERD (gastroesophageal reflux disease) Hemorrhoids Tobacco dependence Ulcerative colitis Surgical History Surgical History History of colonoscopy Social History Social History Smoking packs per day: 1 Smoking cigarettes per day: 20.0 Years smoked: 16 Smoking pack-years: 16.00 Smoking status: Current every day smoker Tobacco type: cigarettes Alcohol intake: current Drinks per week: 6 Alcohol use details: BEERS Substance use: current Substance use type: marijuana Other substance usage details: SMOKE ONCE A WEEK Living arrangements: with family Spiritual care concerns: No Comments At time of signature, agree with nursing past medical, surgical, social and family history. There is no relevant family history pertinent to the presenting complaint. Exam Const: General: cooperative, healthy appearing, comfortable, no acute distress and well nourished Nutritional Appearance: well nourished Orientation/consciousness: patient oriented x3 Limitations: no limitations HENMT: Head: normal to inspection, normocephalic and atraumatic Ears: hearing grossly normal bilaterally, external ears normal, TM's normal bilaterally, EAC's normal and no periauricular adenopathy Face/Nose/Sinus: Normal external nose present, Abnormal mucous membranes and turbinates present erythematous bilateral and diffuse, normal facial exam, sinuses nontender and face symmetric Face and sinus: normal facial exam, sinuses nontender and face symmetric Mouth: Yes Normal oral and palatal mucosa present, Yes lip normal, Yes tongue normal, Yes Normal salivary glands and ducts present, Yes oropharynx normal and Yes moist mucous membranes Teeth and gingiva: dentition normal Throat: posterior oropharynx normal, tonsils nor
[2023-09-01 13:17] VITALS: BP 133/84; PULSE 89; RESP 18; TEMP 36.9; O2SAT 98
== END 2023-09-01 14:15 | disposition home or self-care (01) ==
PROVIDERS: Emergency Provider Nurse Practitioner Family; PCP Family Medicine
DX: J06.9 Acute upper respiratory infection, unspecified (principal); F17.210 Nicotine dependence, cigarettes, uncomplicated; Z20.822 Contact with and (suspected) exposure to COVID-19
CPT/HCPCS: 87081; 87426; 87804; 87880; 99213; G0463

== ENCOUNTER 2023-12-10 10:07 | Emergency (ER) | payer OTHER, SELFPAY ==
--- NOTE | 2023-12-10 10:16 | ED.URI ---
HPI - URI/Sore Throat General Chief Complaint: Upper Respiratory Infection Stated Complaint: Sore Throat Time Seen by Provider: 12/10/23 10:49 Source: patient and RN notes reviewed Mode of arrival: ambulatory Limitations: no limitations History of Present Illness HPI Narrative: 38-year-old male presents concern for 2 day history of sore throat, nasal congestion and drainage, cough. Reports he has not taken any [id number] medications. Denies fever, body aches. Reports chills MD elicited complaint: cough and sore throat Related Data Home Medications Medication Instructions Recorded Confirmed dextromethorphan IR 45 1 tablet PO BID 12/10/23 12/10/23 mg-bupropion ER 105 mg biphasic tablet (Auvelity) Allergies Allergy/AdvReac Type Severity Reaction Status Date / Time Penicillins AdvReac Mild Hives Verified 12/10/23 10:23 Review of Systems Review of Systems: CONSTITUTIONAL: Denies malaise, sweats, or fever. Reports chills EYES: Denies visual changes, redness, or discharge. ENT: Reports rhinorrhea, congestion, and sore throat. CARDIOVASCULAR: Denies chest pain, palpitations, or edema. RESPIRATORY: Reports cough. Denies dyspnea. GASTROINTESTINAL: Denies abdominal pain, nausea, vomiting, diarrhea SKIN: Denies rash or itching. MUSCULOSKELETAL: Denies myalgia. NEUROLOGIC: Denies headache. All systems reviewed & are unremarkable except as noted in HPI and below PMFSH Past Medical History Medical History Chronic left-sided ulcerative colitis GERD (gastroesophageal reflux disease) Hemorrhoids Tobacco dependence Ulcerative colitis Surgical History Surgical History History of colonoscopy Social History Social History Smoking packs per day: 1 Smoking cigarettes per day: 20.0 Years smoked: 16 Smoking pack-years: 16.00 Smoking status: Current every day smoker Tobacco type: cigarettes Alcohol intake: current Drinks per week: 6 Alcohol use details: BEERS Substance use: current Substance use type: marijuana Other substance usage details: SMOKE ONCE A WEEK Living arrangements: with family Spiritual care concerns: No Comments At time of signature, agree with nursing past medical, surgical, social and family history. There is no relevant family history pertinent to the presenting complaint Exam Narrative: GENERAL: Well-appearing, well-nourished, and in no acute distress. HEAD: Normocephalic EYES: PERRLA, conjunctivae clear ENT: Nares clear, turbinates edematous and erythematous, clear discharge. Mucous membranes moist. TM pearly kelly with dull light reflex bilaterally; no tragal tenderness. Oropharynx not erythematous without lesions. Tonsils not enlarged and without exudate, no drooling, no hoarseness, no trismus, uvula midline. NECK: Supple. No lymphadenopathy CHEST: Clear to auscultation, breath sounds equal. No wheezing, rhonchi, rales, or stridor. No respiratory distress, speaks in full sentences. HEART: Regular rate and rhythm. No murmur heard. SKIN: Warm, dry, no rash. NEURO: Alert and oriented x3. PSYCH: Normal mood and affect Course Course Emergency Course: Patient is aware of diagnosis, understands and agrees to treatment plan. Anticipatory guidance given. Patient agrees to follow-up as directed and is aware of reasons to seek care at the emergency department. Portions of this record may have been created with voice recognition software Level of Care: Express Care Visit Vital Signs Vital signs: Reviewed. MDM - URI/Sore Throat MDM Narrative Medical decision making narrative: Differential diagnosis considered: Davis virus, strep pharyngitis, allergic rhinitis, upper respiratory tract infection, sinusitis, rhinosinusitis, nasopharyngitis. viral pharyngitis, otitis media, otitis externa, pneu
[2023-12-10 10:26] VITALS: BP 111/87; PULSE 77; RESP 16; TEMP 36.8; O2SAT 100
== END 2023-12-10 11:00 | disposition home or self-care (01) ==
PROVIDERS: Emergency Provider Nurse Practitioner
DX: J06.9 Acute upper respiratory infection, unspecified (principal); F17.210 Nicotine dependence, cigarettes, uncomplicated; F12.90 Cannabis use, unspecified, uncomplicated; K21.9 Gastro-esophageal reflux disease without esophagitis
CPT/HCPCS: 87081; 87880; 99213; G0463